=== PATIENT | female | born 1995 | race Two or more races ===

== ENCOUNTER 2021-03-30 12:05 | Emergency (ER) | payer MEDICAID, OTHER ==
[~2021-03-30] VITALS: Ht 154.9 cm; Wt 74.8 kg
[2021-03-30 14:22] LABS: Basophils # (auto) 0 10 ^3/uL (0-0.2); Basophils % (auto) 0.8 % (0.0-2.0); Eosinophils # (auto) 0.1 10 ^3/uL (0-0.8); Hematocrit 42.8 % (36.0-46.0); Hemoglobin 14.8 g/dL (12.2-16.2); Lymphocytes # (auto) 2.2 10 ^3/uL (0.4-5.4); Lymphocytes % (auto) 35.3 % (10.0-50.0); Mean Corpuscular Hemoglobin 31.3 pg (28.0-32.0); Mean Corpuscular Hgb Conc. 34.5 g/dL (32.0-36.0); Mean Corpuscular Volume 90.6 fL (80.0-100.0); Monocytes # (auto) 0.5 10 ^3/uL (0-1.3); Monocytes % (auto) 7.4 % (0.0-12.0); Neutrophils # (auto) 3.4 10 ^3/uL (1.6-8.6); Neutrophils % (auto) 54.5 % (37.0-80.0); Nucleated Red Blood Cells % 0.1 %; Platelet Count (auto) 169 10^3/uL (140-450); Red Blood Cells 4.72 10^6/uL (4.0-5.20); Red Cell Distribution Width 13.6 % (11.8-14.3); White Blood Cell 6.3 10^3/uL (4.4-10.8)
[2021-03-30 16:45] LABS: Urine Bacteria NONE SEEN /hpf (None Seen); Urine Blood 3+ /uL (Negative); Urine Specific Gravity 1.025 (1.001-1.035); Urine WBC 3 /hpf (0 - 5)
[2021-03-30 17:52] VITALS: BP 118/70
== END 2021-03-30 17:56 | disposition home or self-care (01) ==
LOC: ER 12:05 → EDBD 12:05 → ER 17:56
DX: N93.9 Abnormal uterine and vaginal bleeding, unspecified (principal)
CPT/HCPCS: 36415; 81001; 84702; 85025

== ENCOUNTER 2021-12-17 14:36 | Emergency (ER) | payer MEDICAID ==
[~2021-12-17] VITALS: Ht 157.5 cm; Wt 77.1 kg
[2021-12-17 14:37] VITALS: BP 120/74
== END 2021-12-17 19:56 | disposition home or self-care (01) ==
LOC: ER 14:36
DX: R07.89 Other chest pain (principal)
CPT/HCPCS: 71046; 93005

== ENCOUNTER 2023-08-03 18:15 | Inpatient (IN) | payer MEDICAID ==
[~2023-08-03] VITALS: Ht 154.9 cm; Wt 95.3 kg
[2023-08-03] MEDS ORDERED: LACTATED RINGER'S 1,000 ML IV SCH ×2 (18:30→21:15)
[2023-08-03] MEDS ORDERED: ceFAZolin 1GM/50ML 50 ML IV ONE (18:30)
[2023-08-03] MEDS ORDERED: LACTATED RINGER'S 1,000 ML IV ONE (18:30)
[2023-08-03] MEDS ORDERED: DexAMETHasone SOD PHOS 10MG/1ML VIAL INJ ONE (19:00)
[2023-08-03] MEDS ORDERED: oxyTOCIN 10 UNIT/ML 10ML VIAL ONE (19:00)
[2023-08-03] MEDS ORDERED: ONDANSETRON HCL 4 MG/2 ML VIAL ONE (19:00)
[2023-08-03] MEDS ORDERED: MORPHINE SULF PF 5 MG/10 ML VIAL ONE (19:02)
[2023-08-03] MEDS ORDERED: fentaNYL CITRATE 100 MCG/2 ML VL ONE (19:02)
[2023-08-03 19:11] LABS: Basophils # (auto) 0 10 ^3/uL (0-0.2); Basophils % (auto) 0.4 % (0.0-2.0); Eosinophils # (auto) 0.1 10 ^3/uL (0-0.8); Eosinophils % (auto) 0.8 % (0.0-7.0); Hematocrit 41.2 % (36.0-46.0); Hemoglobin 13.8 g/dL (12.2-16.2); Lymphocytes # (auto) 2.2 10 ^3/uL (0.4-5.4); Lymphocytes % (auto) 26.2 % (10.0-50.0); Mean Corpuscular Hemoglobin 32.5 pg (28.0-32.0); Mean Corpuscular Hgb Conc. 33.6 g/dL (32.0-36.0); Mean Corpuscular Volume 96.9 fL (80.0-100.0); Monocytes # (auto) 0.7 10 ^3/uL (0-1.3); Monocytes % (auto) 7.9 % (0.0-12.0); Neutrophils # (auto) 5.4 10 ^3/uL (1.6-8.6); Neutrophils % (auto) 64.7 % (37.0-80.0); Nucleated Red Blood Cells % 0.2 %; Red Blood Cells 4.25 10^6/uL (4.0-5.20); Red Cell Distribution Width 14.9 % (11.8-14.3); White Blood Cell 8.4 10^3/uL (4.4-10.8)
[2023-08-03 19:26] LABS: Alanine Aminotransferase 24 U/L (7-40); Albumin 3.6 g/dL (3.2-4.8); Alkaline Phosphatase 201 U/L (46-116); Anion Gap 7 (5-15); Aspartate Aminotransferase 23 U/L (13-40); Bilirubin, Total 0.5 mg/dL (0.2-1.0); Blood Urea Nitrogen 14 mg/dL (9-23); Calcium 9.1 mg/dL (8.5-10.1); Carbon Dioxide 22 mmol/L (20-30); Chloride 108 mmol/L (98-107); Glucose 76 mg/dL (74-106); Potassium 4.2 mmol/L (3.5-5.1); Sodium 137 mmol/L (136-145); Total Protein 5.9 g/dL (5.7-8.2)
[2023-08-03] MEDS ORDERED: CARBOPROST TROMETHAMINE 250 MCG/1ML VIAL IM PRN (19:30)
[2023-08-03] MEDS ORDERED: METHYLERGONOVINE MALEATE 0.2 MG/ML AMP IM PRN (19:30)
[2023-08-03] MEDS ORDERED: TRANEXAMIC ACID 1,000 MG in SODIUM CHL 0.9% 100 ML IV PRN (19:30)
[2023-08-03] MEDS ORDERED: DOCU-94 PO (19:32)
[2023-08-03] MEDS ORDERED: HYDR-4902 PO (19:32)
[2023-08-03] MEDS ORDERED: CEPH500T PO (19:32)
[2023-08-03 19:36] LABS: Urine Bacteria NONE SEEN /hpf (None Seen); Urine Blood Negative /uL (Negative); Urine Clarity Clear (Clear); Urine Color Colorless (Yellow); Urine Protein, UAD Negative (Negative); Urine Specific Gravity 1.012 (1.001-1.035); Urine Urobilinogen Normal (Negative); Urine WBC 1 /hpf (0 - 5)
[2023-08-03 19:43] LABS: Amphetamine Screen, Urine Neg (NEGATIVE); Barbiturate Scree,Urine Neg (NEGATIVE)
[2023-08-03 19:44] LABS: Benzodiazephine Screen, Urine Neg (NEGATIVE); Cocaine Screen, Urine Neg (NEGATIVE); Opiate Scree,Urine Neg (NEGATIVE); Phencyclidine Screen, Urine Neg (NEGATIVE)
[2023-08-03 19:45] LABS: Cannabinoid Screen, Urine Neg (NEGATIVE)
[2023-08-03] MEDS ORDERED: GUM (CHEWING) 1 GUM CHEW CHEW ONE (19:45)
[2023-08-03] MEDS ORDERED: ceFAZolin 1GM VL ONE (19:45)
[2023-08-03] MEDS ORDERED: LACT. RINGERS/OXYTOCIN 20UNITS 1,000 ML IV ONE (19:45)
[2023-08-03] MEDS ORDERED: ONDANSETRON HCL 4 MG/2 ML VIAL IV PRN ×2 (19:45→21:00)
[2023-08-03 19:53] LABS: Giant Platelets Moderate; Platelet Estimate Decreased
[2023-08-03] MEDS ORDERED: CARBOPROST TROMETHAMINE 250 MCG/1ML VIAL IM ONE (20:03)
[2023-08-03] MEDS ORDERED: diphenhdrAMINE HCL 50 MG/1 ML VL ONE (20:11)
[2023-08-03 20:40] VITALS: O2SAT 98
[2023-08-03] MEDS ORDERED: NALOXONE HCL 0.4 MG/ML VIAL IV PRN (21:00)
[2023-08-03] MEDS ORDERED: diphenhdrAMINE HCL 50 MG/1 ML VL IV PRN (21:00)
[2023-08-03] MEDS ORDERED: HYDROmorphone HCL 2 MG/ML VL/or syr IV PRN (21:00)
[2023-08-03] MEDS ORDERED: NALBUPHINE HCL 10 MG/1ml INJECTION IV ONE (21:00)
[2023-08-03 21:10] VITALS: BP 117/72; PULSE 75; O2SAT 96
[2023-08-03 21:20] VITALS: BP 105/60; PULSE 90; O2SAT 94
[2023-08-03] MEDS ORDERED: ceFAZolin 1GM/50ML 50 ML IV SCH (22:00)
[2023-08-03 22:25] VITALS: BP 108/63; PULSE 77; O2SAT 96
[2023-08-03 23:12] VITALS: RESP 16; TEMP 97.7
[2023-08-03 23:25] VITALS: BP 115/67; PULSE 77; O2SAT 96
[2023-08-04] VITALS (26 sets, daily range): BP systolic 92–129; BP diastolic 49–89; PULSE 60–98; RESP 15–18; TEMP 97.7–98.9; O2SAT 73–100
[2023-08-04] MEDS ORDERED: PROMETHAZINE HCL 25 MG/ML 1ML IM ONE (01:30)
[2023-08-04] MEDS: ceFAZolin 1GM/50ML 50 ML IV SCH ×3 (03:07→19:10)
[2023-08-04] MEDS: ACETAMINOPHEN IV 1000 MG/100ML (10MG/ML) IV PRN ×2 (07:07→14:53)
[2023-08-04 07:24] LABS: Basophils # (auto) 0 10 ^3/uL (0-0.2); Basophils % (auto) 0.1 % (0.0-2.0); Eosinophils # (auto) 0 10 ^3/uL (0-0.8); Hematocrit 39.5 % (36.0-46.0); Hemoglobin 13.1 g/dL (12.2-16.2); Lymphocytes # (auto) 1.3 10 ^3/uL (0.4-5.4); Lymphocytes % (auto) 8.1 % (10.0-50.0); Mean Corpuscular Hemoglobin 32.2 pg (28.0-32.0); Mean Corpuscular Hgb Conc. 33.2 g/dL (32.0-36.0); Monocytes # (auto) 0.6 10 ^3/uL (0-1.3); Monocytes % (auto) 3.5 % (0.0-12.0); Neutrophils # (auto) 14.6 10 ^3/uL (1.6-8.6); Neutrophils % (auto) 88.3 % (37.0-80.0); Nucleated Red Blood Cells % 0.1 %; Red Blood Cells 4.07 10^6/uL (4.0-5.20); Red Cell Distribution Width 14.9 % (11.8-14.3); White Blood Cell 16.6 10^3/uL (4.4-10.8)
[2023-08-04 07:38] LABS: INR 0.95 (0.9-1.15); Partial Thromboplastin Time 26.9 SEC (24.5-34.5)
[2023-08-04] MEDS ORDERED: BISACODYL 10 MG RECT SUPP PR PRN (18:15)
[2023-08-04] MEDS: IBUPROFEN 800 MG TAB PO PRN (19:18)
[2023-08-04] MEDS: SIMETHICONE 80 MG CHEWABLE TABLET PO SCH (22:32)
[2023-08-04] MEDS: DOCUSATE SOD 100 MG CAP PO SCH (22:32)
[2023-08-05 03:00] VITALS: BP 104/56; PULSE 72; RESP 16; TEMP 98.2; O2SAT 95
[2023-08-05] MEDS: ceFAZolin 1GM/50ML 50 ML IV SCH ×2 (03:29→11:23)
[2023-08-05] MEDS: HYDROcodone-ACET 5/325MG TAB PO PRN ×5 (03:37→19:45)
[2023-08-05] MEDS: SIMETHICONE 80 MG CHEWABLE TABLET PO SCH ×4 (07:01→22:34)
[2023-08-05 07:02] VITALS: BP 116/58; PULSE 109; RESP 18; TEMP 98.5; O2SAT 97
[2023-08-05 07:06] LABS: RPR Non Reactive (Non Reactive)
[2023-08-05] MEDS: DOCUSATE SOD 100 MG CAP PO SCH ×2 (09:40→22:34)
[2023-08-05] MEDS ORDERED: DOCUSATE CALCIUM 240 MG CAP PO SCH (10:00)
[2023-08-05 11:21] VITALS: BP 117/70; PULSE 99; RESP 18; TEMP 98.3; O2SAT 97
[2023-08-05] MEDS: IBUPROFEN 800 MG TAB PO PRN ×2 (14:29→22:34)
[2023-08-05 14:43] VITALS: BP 125/73; PULSE 94; RESP 18; TEMP 98.3; O2SAT 97
[2023-08-05 19:00] VITALS: BP 106/60; PULSE 87; RESP 16; TEMP 98; O2SAT 97
[2023-08-05] MEDS ORDERED: PREN-96 PO (21:59)
[2023-08-05 23:00] VITALS: BP 97/70; PULSE 74; RESP 16; TEMP 97.6; O2SAT 98
[2023-08-06] MEDS ORDERED: IBUP-1455 PO (01:56)
[2023-08-06 02:40] VITALS: BP 109/59; PULSE 72; RESP 16; TEMP 97.8; O2SAT 98
[2023-08-06] MEDS: HYDROcodone-ACET 5/325MG TAB PO PRN (02:47)
[2023-08-06] MEDS: SIMETHICONE 80 MG CHEWABLE TABLET PO SCH (05:28)
[2023-08-06 07:30] VITALS: BP 97/58; PULSE 87; RESP 16; RESP 18; TEMP 99; O2SAT 97
[2023-08-06] MEDS: IBUPROFEN 800 MG TAB PO PRN (07:50)
[2023-08-06 10:28] VITALS: BP 123/87; PULSE 89; RESP 18; TEMP 98.9; O2SAT 97
[2023-08-07 19:06] LABS: Treponema pallidum Ab (FTA-Ab) Non Reactive (Non Reactive)
== END 2023-08-06 10:28 | disposition home or self-care (01) | DRG 540 ==
LOC: LDRP 18:15
PROVIDERS: ADMIT Obstetrics & Gynecology; ATTEND Obstetrics & Gynecology
PROC: 10D00Z1 Extraction of Products of Conception, Low, Open Approach (ICD-10-PCS; principal; 2023-08-03 19:33)
DX: O41.03X0 Oligohydramnios, third trimester, not applicable or unspecified (principal); O99.214 Obesity complicating childbirth; E66.01 Morbid (severe) obesity due to excess calories; O32.1XX0 Maternal care for breech presentation, not applicable or unspecified; Z3A.38 38 weeks gestation of pregnancy; Z37.0 Single live birth
CPT/HCPCS: 36415; 59025; 80053; 80307; 81001; 81002; 85025; 85610; 85730; 86592; 86850; 86900; 86901; 94760; 94762; 96360; 96361; 96372; 96374; G0378; J0131; J0690; J1100; J2405; J2590

== ENCOUNTER 2025-05-14 09:38 | Outpatient (CLI) | payer MEDICAID ==
[~2025-05-14 09:38] MED LIST: CEPH500T PO; DOCU-94 PO; HYDR-4902 PO; IBUP-1455 PO; PREN-96 PO
== END 2025-05-14 17:00 | disposition home or self-care (01) ==
LOC: LAB 09:38
PROVIDERS: ATTEND Obstetrics & Gynecology
DX: Z34.80 Encounter for supervision of other normal pregnancy, unspecified trimester (principal); Z3A.00 Weeks of gestation of pregnancy not specified
CPT/HCPCS: 86850; 86900; 86901

== ENCOUNTER 2025-06-04 09:00 | Observation (INO) | payer MEDICAID ==
[~2025-06-04] VITALS: Ht 154.9 cm; Wt 94.3 kg
[2025-06-04 09:45] LABS: Hematocrit 37.8 % (36.0-46.0); Hemoglobin 13.0 g/dL (12.2-16.2); Mean Corpuscular Hemoglobin 31.8 pg (28.0-32.0); Mean Corpuscular Volume 92.2 fL (80.0-100.0); Nucleated Red Blood Cells % 0.1 %
[2025-06-04 09:55] LABS: Alanine Aminotransferase 14 U/L (7-40); Albumin 3.7 g/dL (3.2-4.8); Alkaline Phosphatase 73 U/L (46-116); Anion Gap 8 (5-15); BUN/Creatinine Ratio 17.3 (10.0-20.0); Blood Urea Nitrogen 9 mg/dL (9-23); Calcium 8.9 mg/dL (8.7-10.4); Carbon Dioxide 22 mmol/L (20-31); Glucose 95 mg/dL (74-106); Potassium 3.8 mmol/L (3.5-5.1); Sodium 138 mmol/L (136-145); Total Protein 6.1 g/dL (5.7-8.2); Uric Acid 3.7 mg/dL (3.1-7.8)
[2025-06-04 09:56] LABS: Bilirubin, Total 0.5 mg/dL (0.2-1.0)
[2025-06-04 09:58] LABS: Chloride 108 mmol/L (98-107)
[2025-06-04 10:02] LABS: INR 0.96 (0.9-1.15); Partial Thromboplastin Time 25.7 SEC (24.5-34.5); Prothrombin Time 10.2 sec (9.3-11.8)
[2025-06-04 10:09] LABS: Protein, Urine < 6.0 mg/dL (1-14)
[2025-06-04 10:16] LABS: Urine Protein, UAD Negative (Negative)
--- NOTE | 2025-06-04 13:53 | DVHDS2 ---
Physician Discharge Progress N Final Diagnosis: [facility] 24wks Operations or Procedures: Operations or Procedures nst,labs Condition on Discharge: Good Disposition: Home Discharge Instructions: Diet: Regular Activity: Light activity Medications: na Follow Up Care: Specialist: 3d Discharge Statement: "Patient was advised to return to the ER or call 911 if any headaches, dizziness , shortness of breath, chest pain, abdominal pain, bleeding, fevers, or worsening of medical condition. Patient was counseled about treatment plan, medications, possible side effects, patientverbalized understanding. All questions were answered to the best of my ability. This discharge took greater then 30 minutes in planning, reviewing documentation, counseling the patient, and discussing with other team members." Visit Coding OBGYN Date of Service: Jun 04, 2025 Billing Provider: MIKAELA KING DO MACHINE PLASTER MIXER Common Visit Codes: 47233-DRJLAOR OBS CARE (HIGH) MACHINE PLASTER MIXER Procedure Codes: 24899-26- NON-STRESS TEST MIKAELA KING DO Jun 04, 2025 13:53
== END 2025-06-04 10:55 | disposition home or self-care (01) ==
LOC: LDRP 09:00 → UNDOADMOB 09:00 → LDRP 09:11 → UNDODISOB 10:55
PROVIDERS: ADMIT Obstetrics & Gynecology; ATTEND Obstetrics & Gynecology
DX: O13.3 Gestational [pregnancy-induced] hypertension without significant proteinuria, third trimester (principal); Z3A.24 24 weeks gestation of pregnancy; Z98.890 Other specified postprocedural states
CPT/HCPCS: 36415; 80053; 81001; 81002; 82570; 84156; 84550; 85025; 85610; 85730; 94760; G0378; 59025

== ENCOUNTER 2025-06-09 12:20 | Observation (INO) | payer MEDICAID ==
[2025-06-09 13:53] LABS: Urine Protein, UAD TRACE (Negative)
[2025-06-09 14:03] LABS: Protein, Urine 7.0 mg/dL (1-14)
[2025-06-09 14:34] LABS: 24 Hr. Total Protein, Urine 129.5 mg/24 Hr (<149.1); Urine Total Volume, 24 Hours 1850.0 mL
--- NOTE | 2025-06-11 09:57 | DVHDS2 ---
Physician Discharge Progress N Final Diagnosis: [facility] RULED OUT 24WKS Operations or Procedures: Operations or Procedures NST,SONO,LABS Condition on Discharge: Good Disposition: Home Discharge Instructions: Diet: Cardiac 2g Na,low cholest Activity: No Restrictions, As Tolerated Medications: NA Follow Up Care: Specialist: 1W Discharge Statement: "Patient was advised to return to the ER or call 911 if any headaches, dizziness, shortness of breath, chest pain, abdominal pain, bleeding, fevers, or worsening of medical condition. Patient was counseled about treatment plan, medications, possible side effects, patientverbalized understanding. All questions were answered to the best of my ability. This discharge took greater then 30 minutes in planning, reviewing documentation, counseling the patient, and discussing with other team members." Visit Coding OBGYN Date of Service: Jun 09, 2025 Billing Provider: MIKAELA KING DO EXTRACORPOREAL CIRCULATION SPECIALIST Common Visit Codes: 27713-DGNQBLW OBS CARE (HIGH) EXTRACORPOREAL CIRCULATION SPECIALIST Procedure Codes: 44337-23- NON-STRESS TEST MIKAELA KING DO Jun 11, 2025 09:57
== END 2025-06-09 13:40 | disposition home or self-care (01) ==
LOC: LDRP 12:20
PROVIDERS: ADMIT Obstetrics & Gynecology; ATTEND Obstetrics & Gynecology
DX: O13.2 Gestational [pregnancy-induced] hypertension without significant proteinuria, second trimester (principal); Z3A.25 25 weeks gestation of pregnancy; Z98.890 Other specified postprocedural states
CPT/HCPCS: 81001; 81002; 82570; 84156; 94760; G0378

== ENCOUNTER 2025-06-16 06:26 | Observation (INO) | payer MEDICAID ==
--- NOTE | 2025-06-16 14:42 | DVHDS2 ---
Discharge Summary Date of Admission Jun 16, 2025 at 12:02 Date of Discharge: Jun 16, 2025 Admitting Diagnosis Twenty-six week intrauterine history of PH here for evaluation Wounds: None Labs/Diagnostic Data: Reassuring Brief Hx & Hospital Course: Patient's history of PH but no signs or symptoms today NST reassuring blood pressures reassuring no right upper quadrant pain Consults/Reason for consult None Operations or Procedures None NST performed reassuring Condition at Discharge: Good Final Diagnosis/Problems List PIH Discharge Disposition: Home Discharge Instruct/Medications Diet: Regular Activity: No Restrictions, As Tolerated Follow Up/Referral: As scheduled kick counts labor precautions PIH precautions Scheduled Cephalexin Monohydrate (Cephalexin), 500 MG PO QID Docusate Sodium (Colace), 1 CAP PO BID Vit W/ Ferrous Fumara ( One Daily), 1 TAB PO DAILY Scheduled PRN Hydrocodone-Acetaminophen (Hydrocodone Bitartrate/AC 5-325 mg), 1 TAB PO Q6HPRN PRN Ibuprofen Micronized (Ibuprofen), 800 MG PO Q8HP PRN Discharge Statement: "Patient was advised to return to the ER or call 911 if any headaches, dizziness, shortness of breath, chest pain, abdominal pain, bleeding, fevers, or worsening of medical condition. Patient was counseled about treatment plan, medications, possible side effects, patientverbalized understanding. All questions were answered to the best of my ability. This discharge took greater then 30 minutes in planning, reviewing documentation, counseling the patient, and discussing with other team members." ASSESSMENT ASSESSMENT Assessment Visit Coding OBGYN Date of Service: Jun 16, 2025 Billing Provider: ERICA MEYERS DO BEHAVIORAL HEALTH CONSULTANT Common Visit Codes: 60592-ZHP/OBS SAME DATE (LOW), 40467-VWT/OBS SAME DATE (MOD), 29981-LTK/OBS SAME DATE (HIGH) BEHAVIORAL HEALTH CONSULTANT Procedure Codes: 43135-78- NON-STRESS TEST ERICA MEYERS DO Jun 16, 2025 14:42
== END 2025-06-16 13:48 | disposition home or self-care (01) ==
LOC: LDRP 12:02
PROVIDERS: ADMIT Obstetrics & Gynecology; ATTEND Obstetrics & Gynecology
DX: O13.3 Gestational [pregnancy-induced] hypertension without significant proteinuria, third trimester (principal); Z3A.36 36 weeks gestation of pregnancy; Z98.890 Other specified postprocedural states
CPT/HCPCS: 81002; G0378

== ENCOUNTER 2025-06-26 06:31 | Observation (INO) | payer MEDICAID ==
[~2025-06-26] VITALS: Ht 154.9 cm; Wt 97.5 kg
--- NOTE | 2025-06-26 20:33 | DVHDS2 ---
Physician Discharge Progress N Final Diagnosis: testing and BP monitor for hx of pre-e Operations or Procedures: Operations or Procedures SUBJECTIVE Chikis Rod is a 29 yo with IUP at 27w5d presenting for scheduled NST and BP monitoring x 1 hour for hx pre-e with magnesium Denies feeling UCs, vaginal bleeding, or leaking fluid. Endorses positive movement. Is undecided whether she wants to TOLAC or do a r c/s EDC: 09/20/2025 Ob Hx: x1 in 2019 (pre-e and on magnesium) c/s x 1 in 2022 for breech presentation Med Hx: denies Surg Hx: denies Review of Systems: Neuro: No complaints Heart: No complaints Lungs: No complaints GI: No complaints : No complaints Skin: No complaints Extremities: No complaints OBJECTIVE VSS FHR: Baseline: 150 Variability: Moderate Accelerations: Present Decelerations: Absent Category: 1 UCs: none noted Neuro: A&O x4. No apparent distress. Affect appropriate Heart: Regular rate and rhythm Lungs: Clear bilaterally GI: Gravid. No tenderness Skin: Dry and intact. No rashes or lesions ASSESSMENT 29 yo at 27w5d Category 1 Tracing Prev c/s Hx. Pre-e on magnesium PLAN -Discussed risks/benefits of TOLAC vs scheduled repeat c/s. Encouraged patient to do research and ask questions to decide what she wants to do -Discussed labor precautions and kick counts. Answered all patient questions and concerns. Patient verbalizes understanding. Condition on Discharge: Good Disposition: Home Discharge Instructions: Diet: Regular Activity: No Restrictions, As Tolerated Medications: No change. See med list Follow Up Care: Specialist: follow-up weekly as previously scheduled Discharge Statement: "Patient was advised to return to the ER or call 911 if any headaches, dizziness, shortness of breath, chest pain, abdominal pain, bleeding, fevers, or worsening of medical condition. Patient was counseled about treatment plan, medications, possible side effects, patientverbalized understanding. All questions were answered to the best of my ability. This discharge took greater then 30 minutes in planning, reviewing documentation, counseling the patient, and discussing with other team members." Visit Coding OBGYN Date of Service: Jun 26, 2025 Billing Provider: SALOMÓN MIKE CNM POULTRY CLEANER Common Visit Codes: 51444-AUKPKDY OBS CARE (HIGH) POULTRY CLEANER Procedure Codes: 11034-85- NON-STRESS TEST SALOMÓN MIKE CNM Jun 26, 2025 20:33
== END 2025-06-26 21:03 | disposition home or self-care (01) ==
LOC: LDRP 19:33
PROVIDERS: ADMIT Obstetrics & Gynecology; ATTEND Obstetrics & Gynecology
DX: O13.2 Gestational [pregnancy-induced] hypertension without significant proteinuria, second trimester (principal); O34.219 Maternal care for unspecified type scar from previous cesarean delivery; Z3A.27 27 weeks gestation of pregnancy; Z98.890 Other specified postprocedural states
CPT/HCPCS: 81002; 94760; G0378; 59025

== ENCOUNTER 2025-07-02 08:56 | Observation (INO) | payer MEDICAID ==
--- NOTE | 2025-07-03 22:08 | DVHDS2 ---
Physician Discharge Progress N Final Diagnosis: testing for hx pre-e on magnesium Secondary Diagnosis: prev c/s Operations or Procedures: Operations or Procedures Chikis Rod is a 29 yo with IUP at 28w5d presenting for scheduled NST and BP monitoring x 1 hour for hx pre-e with magnesium Denies feeling UCs, vaginal bleeding, or leaking fluid. Patient is wondering if she needs to continue coming in weekly for BP checks, as all her BPs have been WNL EDC: 09/20/2025 Ob Hx: x1 in 2019 (pre-e and on magnesium) c/s x 1 in 2022 for breech presentation Med Hx: denies Surg Hx: denies Review of Systems: Neuro: No complaints Heart: No complaints Lungs: No complaints GI: No complaints : No complaints Skin: No complaints Extremities: No complaints OBJECTIVE VSS. All BP WNL FHR: Baseline: 135 Variability: Moderate Accelerations: Present Decelerations: One variable decel noted Reactive NST UCs: none noted Neuro: A&O x4. No apparent distress. Affect appropriate Heart: Regular rate and rhythm Lungs: Clear bilaterally GI: Gravid. No tenderness Skin: Dry and intact. No rashes or lesions ASSESSMENT 29 yo at 28w5d Category 1 Tracing Prev c/s Hx. Pre-e on magnesium PLAN -Encouraged patient to discuss POC with Dr Bazan at her appointment tomorrow 07/04. Educated patient on pre-e warning signs to watch for and BP monitoring regimen at home, if MD states it is OK to do so -Discussed labor precautions and kick counts. Answered all patient questions and concerns. Patient verbalizes understanding. Condition on Discharge: Good Disposition: Home Discharge Instructions: Diet: Regular Activity: No Restrictions, As Tolerated Medications: No change Follow Up Care: Specialist: Appt with Dr Bazan tomorrow 07/04 Discharge Statement: "Patient was advised to return to the ER or call 911 if any headaches, dizziness, shortness of breath, chest pain, abdominal pain, bleeding, fevers, or worsening of medical condition. Patient was counseled about treatment plan, medications, possible side effects, patientverbalized understanding. All questions were answered to the best of my ability. This discharge took greater then 30 minutes in planning, reviewing documentation, counseling the patient, and discussing with other team members." Visit Coding OBGYN Date of Service: Jul 03, 2025 Billing Provider: SALOMÓN MIKE CNM FIELD ASSESSOR Common Visit Codes: 35391-IPQNOLM INP/OBS CARE (HIGH) FIELD ASSESSOR Procedure Codes: 27017-97- NON-STRESS TEST SALOMÓN MIKE CNM Jul 03, 2025 22:08
== END 2025-07-03 20:51 | disposition home or self-care (01) ==
LOC: LDRP 07-03 18:41
PROVIDERS: ADMIT Obstetrics & Gynecology; ATTEND Obstetrics & Gynecology
DX: Z36.89 Encounter for other specified antenatal screening (principal); Z3A.28 28 weeks gestation of pregnancy; Z98.890 Other specified postprocedural states
CPT/HCPCS: 59025; 81002; 94760; G0378

== ENCOUNTER 2025-07-30 21:47 | Observation (INO) | payer MEDICAID ==
--- NOTE | 2025-07-30 22:41 | DVH ---
BIOPHYSICAL PROFILE HISTORY: PIH TECHNIQUE: Multiple transabdominal real-time grayscale sonographic images through the gravid uterus of the fetus with duplex Doppler color flow and M-mode spectral analysis FINDINGS: BIOPHYSICAL PROFILE: breathing score: 2 movement score: 2 tone score: 2 Quantitative SOHAIL score: 2 (SOHAIL: 10.1 Cm, MVP: 5.1 cm.) Total score: 8/8 The cervix obscured by head Single live fetus in cephalic presentation. heart rate 146 beats per minute. Fundal Grade 1 placenta without previa or abruption Single live fetus at 32 weeks 4 days Biophysical profile score 8/8 corresponding to an NILAY of 09/20/2025 IMPRESSION: 1. Biophysical profile score: 8/8 2. Nuchal cord
[2025-07-30 23:02] LABS: Hematocrit 37.3 % (36.0-46.0); Hemoglobin 12.6 g/dL (12.2-16.2); Mean Corpuscular Hemoglobin 31.3 pg (28.0-32.0); Mean Corpuscular Volume 92.4 fL (80.0-100.0); Nucleated Red Blood Cells % 0.2 %
[2025-07-30 23:13] LABS: Protein, Urine 6.8 mg/dL (1-14); Urine Protein, UAD Negative (Negative)
[2025-07-30 23:18] LABS: Alanine Aminotransferase 15 U/L (7-40); Albumin 3.5 g/dL (3.2-4.8); Alkaline Phosphatase 104 U/L (46-116); Anion Gap 9 (5-15); BUN/Creatinine Ratio 18.9 (10.0-20.0); Blood Urea Nitrogen 10 mg/dL (9-23); Calcium 9.0 mg/dL (8.7-10.4); Carbon Dioxide 24 mmol/L (20-31); Chloride 106 mmol/L (98-107); Glucose 97 mg/dL (74-106); Potassium 3.6 mmol/L (3.5-5.1); Sodium 139 mmol/L (136-145); Total Protein 5.9 g/dL (5.7-8.2); Uric Acid 3.4 mg/dL (3.1-7.8)
[2025-07-30 23:19] LABS: Bilirubin, Total 0.3 mg/dL (0.2-1.0)
[2025-07-30 23:26] LABS: INR 0.94 (0.9-1.15); Partial Thromboplastin Time 26.2 SEC (24.5-34.5); Prothrombin Time 10.0 sec (9.3-11.8)
--- NOTE | 2025-07-30 23:47 | DVHDS2 ---
Physician Discharge Progress N Final Diagnosis: ruled out preeclampsia Operations or Procedures: Operations or Procedures 29yo IUP@32.4wks was sent down from Dr. Bazan's office for rule out PreE/NST/BPP. Denies UCs/LOF/VB/WINTER/vision changes/RUQ pain. Endorses +FM. VSS, see CPN NST reactive BPP 05/16 [facility]KC/PTL/preE precautions reviewed Dr. Bazan consulted, agrees with POC. Laboratory Tests Test 07/30/25 22:20 07/30/25 22:38 Range/Units Urine Color Light-yellow Yellow Urine Clarity Clear Clear Urine pH 6.5 5.0-9.0 Urine Specific Dawson 1.017 1.001-1.035 Urine Protein Negative Negative Urine Ketones Negative Negative Urine Blood Negative Negative /uL Urine Nitrite Negative Negative Urine Bilirubin Negative Negative Urine Urobilinogen Normal Negative mg/dL Urine Leukocyte Esterase Negative Negative /uL Urine RBC None seen 0 - 4 /hpf Urine Microscopic WBC 1 0-5 /HPF Urine Squamous Epithelial Cells Few <5 /hpf Urine Bacteria None seen None Seen /hpf Urine Creatinine 76.66 30.0-125.0 mg/dL Urine Protein/Creatinine Ratio 0.09 Urine Glucose Normal Normal mg/dL Urine Total Protein 6.8 1-14 mg/dL White Blood Count 10.0 4.4-10.8 10^3/uL Red Blood Count 4.04 4.0-5.20 10^6/uL Hemoglobin 12.6 12.2-16.2 g/dL Hematocrit 37.3 36.0-46.0 % Mean Corpuscular Volume 92.4 80.0-100.0 fL Mean Corpuscular Hemoglobin 31.3 28.0-32.0 pg Mean Corpuscular Hemoglobin Concent 33.9 32.0-36.0 g/dL Red Cell Distribution Width 14.3 11.8-14.3 % Platelet Count 157 140-450 10^3/uL Mean Platelet Volume 11.3 H 6.9-10.8 fL Neutrophils (%) (Auto) 63.8 37.0-80.0 % Lymphocytes (%) (Auto) 25.6 10.0-50.0 % Monocytes (%) (Auto) 8.9 0.0-12.0 % Eosinophils (%) (Auto) 1.4 0.0-7.0 % Basophils (%) (Auto) 0.3 0.0-2.0 % Neutrophils # (Auto) 6.4 1.6-8.6 10 ^3/uL Lymphocytes # (Auto) 2.6 0.4-5.4 10 ^3/uL Monocytes # (Auto) 0.9 0-1.3 10 ^3/uL Eosinophils # (Auto) 0.1 0-0.8 10 ^3/uL Basophils # (Auto) 0 0-0.2 10 ^3/uL Nucleated Red Blood Cells 0.2 % Prothrombin Time 10.0 9.3-11.8 sec Prothrombin Time INR 0.94 0.9-1.15 Activated Partial Thromboplast Time 26.2 24.5-34.5 SEC Sodium Level 139 136-145 mmol/L Potassium Level 3.6 3.5-5.1 mmol/L Chloride Level 106 98-107 mmol/L Carbon Dioxide Level 24 20-31 mmol/L Anion Gap 9 5-15 Blood Urea Nitrogen 10 9-23 mg/dL Creatinine 0.53 L 0.550-1.02 mg/dL Glomerular Filtration Rate Calc 129 >90 mL/min BUN/Creatinine Ratio 18.9 10.0-20.0 Serum Glucose 97 74-106 mg/dL Uric Acid 3.4 3.1-7.8 mg/dL Calcium Level 9.0 8.7-10.4 mg/dL Total Bilirubin 0.3 0.2-1.0 mg/dL Aspartate Amino Transferase (AST) 16 13-40 U/L Alanine Aminotransferase (ALT) 15 7-40 U/L Alkaline Phosphatase 104 46-116 U/L Total Protein 5.9 5.7-8.2 g/dL Albumin 3.5 3.2-4.8 g/dL Other Interventions Other Interventions [facility] [id number] [place] [id number] Ph: [phone] DIAGNOSTIC IMAGING Diagnostic Imaging Report : [id number] Signed PATIENT: SKY CURIEL ACCT: [id number] UNIT: [id number] : 1995 LOC: [facility] ROOM / BED: TRIAGE1 / A AGE / SEX: 29 / F ADM STATUS: ADM IN SERVICE 577 ORDERING PHYSICIAN: AMIE SIMEON CNM PROCEDURE(s): BPP - BIOPHYSICAL PROFILE REASON: PIH ORDER NUMBER(s): [id number], ACCESSION NUMBER(s): [id number] BIOPHYSICAL PROFILE HISTORY: PIH TECHNIQUE: Multiple transabdominal real-time grayscale sonographic images through the gravid uterus of the fetus with duplex Doppler color flow and M-mode spectral analysis FINDINGS: BIOPHYSICAL PROFILE: breathing score: 2 movement score: 2 tone score: 2 Quantitative SOHAIL score: 2 (SOHAIL: 10.1 Cm, MVP: 5.1 cm.) Total score: 8/8 The cervix obscured by head Single live fetus in cephalic presentation. heart rate 146 beats per minute. Fundal Grade 1 placenta without previa or abruption Single live fetus at 32 weeks 4 days Biophysical profile score 8/8 corresponding to an NILAY of 09/20/2025 IMPRESSION: 1. Biophysical profile score: 8/8 2. Nuchal cord ATED BY: ODALYS KAPLAN Jr., DO DICTATED DATE/TIME: 07/30/252238 SIGNED BY: ODALYS KAPLAN Jr., SIGNED DATE/TIME: 07/30/252238 CC: Condition on Discharge: Stable Disposition: Home Discharge Instructions: Diet: Regular Activity: No Restrictions, As Tolerated Follow Up/Referral: KEEP CURRENT APPOINTMENT WITH DR BAZAN. Medications: see med list Follow Up Care: Specialist: f/u with Dr. Bazan in office as scheduled Discharge Statement: "Patient was advised to return to the ER or call 911 if any headaches, dizziness, shortness of breath, chest pain, abdominal pain, bleeding, fevers, or worsening of medical condition. Patient was counseled about treatment plan, medications, possible side effects, patientverbalized understanding. All questions were answered to the best of my ability. This discharge took greater then 30 minutes in planning, reviewing document ation, counseling the patient, and discussing with other team members." Visit Coding OBGYN Date of Service: Jul 30, 2025 Billing Provider: AMIE SIMEON CNM BOOM OPERATOR Common Visit Codes: 62027-DICTRJG OBS CARE (HIGH) BOOM OPERATOR Procedure Codes: 08240-64- NON-STRESS TEST AMIE SIMEON [facility] Jul 30, 2025 23:47
== END 2025-07-30 23:47 | disposition home or self-care (01) ==
LOC: LDRP 21:47
PROVIDERS: ADMIT Obstetrics & Gynecology; ATTEND Obstetrics & Gynecology
DX: O13.3 Gestational [pregnancy-induced] hypertension without significant proteinuria, third trimester (principal); Z3A.32 32 weeks gestation of pregnancy; Z98.890 Other specified postprocedural states
CPT/HCPCS: 36415; 59025; 76819; 80053; 81001; 81002; 82570; 84156; 84550; 85025; 85610; 85730; 94760; G0378

== ENCOUNTER 2025-09-08 11:16 | Observation (INO) | payer MEDICAID ==
[~2025-09-08] VITALS: Ht 154.9 cm; Wt 110.2 kg
--- NOTE | 2025-09-08 12:33 | DVH ---
BIOPHYSICAL PROFILE HISTORY: Postive anti-C TECHNIQUE: Multiple transabdominal real-time grayscale sonographic images through the gravid uterus of the fetus with duplex Doppler color flow and M-mode spectral analysis FINDINGS: BIOPHYSICAL PROFILE: breathing score: 2 movement score: 2 tone score: 2 Quantitative SOHAIL score: 2 (SOHAIL: 11.4 Cm.) Total score: 8 The cervix not well visualized Single live fetus in cephalic presentation. heart rate 152 beats per minute. Grade 3 fundal placenta without previa or abruption IMPRESSION: Biophysical profile score: 8
[2025-09-08] MEDS ORDERED: NIFE10CA52 PO (12:44)
[2025-09-08] MEDS: TERBUTALINE SULFATE 1 MG/ML 1ML VIAL SC SCH (13:17)
--- NOTE | 2025-09-08 23:09 | DVHDS2 ---
Discharge Summary Date of Admission Sep 08, 2025 at 11:21 Date of Discharge: Sep 08, 2025 Admitting Diagnosis 38 wks Positive anti C NST BPP Wounds: none Brief Hx & Hospital Course: NST BPP reassuring Operations or Procedures NST BPP Condition at Discharge: Good Final Diagnosis/Problems List 38 + weeks Antibody C Discharge Disposition: Home Discharge Instruct/Medications Diet: Regular Activity: No Restrictions, As Tolerated Activity comment: kick counts labor precautions Follow Up/Referral: as scheduled Scheduled Cephalexin Monohydrate (Cephalexin), 500 MG PO QID Docusate Sodium (Colace), 1 CAP PO BID Nifedipine (Procardia Capsule), 10 MG PO Q4HR, (Reported) Vit W/ Ferrous Fumara ( One Daily), 1 TAB PO DAILY Scheduled PRN Hydrocodone-Acetaminophen (Hydrocodone Bitartrate/AC 5-325 mg), 1 TAB PO Q6HPRN PRN Ibuprofen Micronized (Ibuprofen), 800 MG PO Q8HP PRN Discharge Statement: "Patient was advised to return to the ER or call 911 if any headaches, dizziness, shortness of breath, chest pain, abdominal pain, bleeding, fevers, or worsening of medical condition. Patient was counseled about treatment plan, medications, possible side effects, patientverbalized understanding. All questions were answered to the best of my ability. This discharge took greater then 30 minutes in planning, reviewing documentation, counseling the patient, and discussing with other team members." ASSESSMENT ASSESSMENT Assessment Visit Coding OBGYN Date of Service: Sep 08, 2025 Billing Provider: ERICA MEYERS DO SAMPLE PREPARATION SUPERVISOR Common Visit Codes: 39828-NHNMAXL INP/OBS CARE (HIGH), 50132-OFH/OBS SAME DATE (LOW), 74947-NYX/OBS SAME DATE (MOD) SAMPLE PREPARATION SUPERVISOR Procedure Codes: 36118-94- NON-STRESS TEST ERICA MEYERS DO Sep 08, 2025 23:09
== END 2025-09-08 14:05 | disposition home or self-care (01) ==
LOC: UNDOADMOB 11:16 → LDRP 11:16
PROVIDERS: ADMIT Obstetrics & Gynecology; ATTEND Obstetrics & Gynecology
DX: O26.893 Other specified pregnancy related conditions, third trimester (principal); R11.0 Nausea; Z3A.38 38 weeks gestation of pregnancy; Z98.890 Other specified postprocedural states
CPT/HCPCS: 59025; 76819; 81002; 94760; 96372; A4649; G0378; J3105

== ENCOUNTER 2025-09-11 04:25 | Inpatient (IN) | payer MEDICAID ==
[2025-09-10 10:47] LABS: Hematocrit 40.0 % (36.0-46.0); Hemoglobin 13.7 g/dL (12.2-16.2); Mean Corpuscular Hemoglobin 32.2 pg (28.0-32.0); Mean Corpuscular Volume 94.4 fL (80.0-100.0); Nucleated Red Blood Cells % 0.2 %
[2025-09-10 10:48] LABS: Urine Protein, UAD Negative (Negative)
[2025-09-10 11:01] LABS: INR 0.95 (0.9-1.15); Partial Thromboplastin Time 27.3 SEC (24.5-34.5); Prothrombin Time 10.1 sec (9.3-11.8)
[2025-09-10 11:04] LABS: Alanine Aminotransferase 17 U/L (7-40); Albumin 3.5 g/dL (3.2-4.8); Anion Gap 12 (5-15); BUN/Creatinine Ratio 14.8 (10.0-20.0); Bilirubin, Total 0.4 mg/dL (0.2-1.0); Calcium 9.2 mg/dL (8.7-10.4); Carbon Dioxide 21 mmol/L (20-31); Chloride 106 mmol/L (98-107); Potassium 3.7 mmol/L (3.5-5.1); Sodium 139 mmol/L (136-145); Total Protein 6.0 g/dL (5.7-8.2)
[2025-09-10 11:06] LABS: Alkaline Phosphatase 151 U/L (46-116); Blood Urea Nitrogen 8 mg/dL (9-23); Glucose 130 mg/dL (74-106)
[2025-09-10 11:06] LABS: Amphetamine Screen, Urine Neg (NEGATIVE); Barbiturate Scree,Urine Neg (NEGATIVE); Benzodiazephine Screen, Urine Neg (NEGATIVE); Cannabinoid Screen, Urine Neg (NEGATIVE); Cocaine Screen, Urine Neg (NEGATIVE); Opiate Scree,Urine Neg (NEGATIVE); Phencyclidine Screen, Urine Neg (NEGATIVE)
[2025-09-11] VITALS (15 sets, daily range): BP systolic 99–130; BP diastolic 55–76; PULSE 72–98; RESP 15–18; TEMP 97.5–98.4; O2SAT 91–100
[~2025-09-11] VITALS: Ht 154.9 cm; Wt 110.7 kg
--- NOTE | 2025-09-11 03:13 | DVHHP ---
ADMIT DATE: 09/11/2025 CHIEF COMPLAINT: Labor, desires repeat section with bilateral tubal ligation. HISTORY OF PRESENT ILLNESS: The patient is a 29-year-old 2, para 2 with due date 09/20, estimated gestational age of 38+ weeks, admitted for early labor. The patient had previous section x1, wishes to have repeat section. The patient has been on Procardia for labor. She has antibody anti-c. She had previous section x1. She also wants to have tubal ligation. Risks, complications of tubal ligation, failure rate, use of Filshie clip discussed with the patient, options reviewed. All questions answered. The patient fully understands. She wishes to proceed with repeat section and bilateral tubal ligation. The patient also has a history of preeclampsia. PAST MEDICAL HISTORY: None. PAST SURGICAL HISTORY: . SOCIAL HISTORY: None. FAMILY HISTORY: None. OBSTETRIC AND GYNECOLOGIC HISTORY: One section. One vaginal delivery. REVIEW OF SYSTEMS: Consistent with HPI. PHYSICAL EXAMINATION: VITAL SIGNS: Stable, afebrile. HEENT: Within normal limits. CARDIOVASCULAR: Regular rate and rhythm. LUNGS: Clear to auscultation. BREASTS: Symmetrical. No masses. ABDOMEN: Gravid. Positive heart. PELVIC: 1 cm, 50%, -2. EXTREMITIES: No clubbing, cyanosis, or edema. IMPRESSION: ? Intrauterine at 38+ weeks in early labor. ? Previous section x1. Desires repeat section. ? Anti-c large antibody. The patient was under Dr. Fabian perinatology care. ? Desires tubal ligation. ? Morbid obesity. PLAN: Repeat section with bilateral tubal ligation. Informed consent was obtained. Risks and complications of surgery including infection, bleeding, hematoma formation, injury to bowel or bladder, surrounding organ, possibility of DVT, pulmonary embolism, and risk of anesthesia were discussed with the patient. Options reviewed. All questions were answered. The patient fully understands. She wishes to proceed with planned procedure. Failure rate with tubal sterilization, use of Filshie clip discussed with the patient. DO ДМИТРИЙ Williamson/JEFFERY TID: [id number] RECEIPT: [id number]
[~2025-09-11 04:25] MED LIST changes: +NIFE10CA52 PO
[2025-09-11] MEDS ORDERED: SODIUM CITR/CITRIC ACID ORAL SOLN 30 ML PO PRN (04:45)
[2025-09-11] MEDS ORDERED: METOCLOPRAMIDE HCL 5MG/ml INJ 2ml VIAL IV PRN (04:45)
[2025-09-11] MEDS: ceFAZolin 2 GM/D5W50ml 50 ML IV ONE (07:43)
[2025-09-11] MEDS: LACTATED RINGER'S 1,000 ML IV SCH (08:03)
[2025-09-11] MEDS: LACTATED RINGER'S 1,000 ML IV ONE (08:03)
[2025-09-11] MEDS ORDERED: BUPIVACAINE/DEXTROSE MPF 0.75% 2 ML AMP IT ONE (08:28)
[2025-09-11] MEDS ORDERED: MORPHINE SULF PF 5 MG/10 ML VIAL ONE (08:28)
[2025-09-11] MEDS ORDERED: ONDANSETRON HCL 4 MG/2 ML VIAL ONE (09:20)
[2025-09-11] MEDS: CARBOPROST TROMETHAMINE 250 MCG/1ML VIAL IM ONE (09:30)
[2025-09-11] MEDS ORDERED: NALOXONE HCL 0.4 MG/ML VIAL IV PRN (10:15)
[2025-09-11] MEDS ORDERED: ONDANSETRON HCL 4 MG/2 ML VIAL IV PRN (10:15)
[2025-09-11] MEDS ORDERED: ACETAMINOPHEN IV 1000 MG/100ML (10MG/ML) IV PRN ×2 (10:15→11:30)
[2025-09-11] MEDS: NALBUPHINE HCL 10 MG/1ml INJECTION SUBCUT ONE (10:15)
[2025-09-11] MEDS ORDERED: diphenhydrAMINE HCL 50 MG/1 ML VL IV PRN (10:15)
[2025-09-11] MEDS ORDERED: MEPERIDINE HCL (25 MG/ML) 1ML VIAL IV PRN (10:15)
[2025-09-11] MEDS ORDERED: HYDROmorphone HCL 2 MG/ML VL/or syr IV PRN ×2 (10:15)
[2025-09-11] MEDS ORDERED: KETOROLAC TROMETH 30 MG/ML 1ML VIAL IV PRN (10:15)
[2025-09-11] MEDS: ONDANSETRON HCL 4 MG/2 ML VIAL IV PRN (10:38)
[2025-09-11] MEDS: DIPHENOXYLATE W/ATROPINE 2.5 MG TAB PO ONE (10:40)
[2025-09-11] MEDS: DIPHENOXYLATE W/ATROPINE 2.5 MG TAB ONE (10:42)
[2025-09-11] MEDS: GUM (CHEWING) 1 GUM CHEW CHEW ONE (11:30)
[2025-09-11 12:12] LABS: Hematocrit 42.7 % (36.0-46.0); Hemoglobin 14.0 g/dL (12.2-16.2); Mean Corpuscular Hemoglobin 31.2 pg (28.0-32.0); Mean Corpuscular Volume 95.3 fL (80.0-100.0); Nucleated Red Blood Cells % 0.1 %
--- NOTE | 2025-09-11 12:25 | DVHOP2 ---
Operative Report DATE OF OPERATION: 09/11/25 PREOPERATIVE DIAGNOSES: 1. iup at 38+wks in labor, desires repeat section. 2. Desires bilateral tubal ligation,morbid obesity POSTOPERATIVE DIAGNOSES: same PROCEDURES: Repeat section with bilateral tubal ligation via Filschie Clips SURGEON: Mikaela Bazan D.O./ekaterina ANESTHESIOLOGIST: Dr. tobar TYPE OF ANESTHESIA : spinal ESTIMATED BLOOD LOSS: 800 mL CONSENT: The patient was informed of the risks and benefits of the procedure. These include but are not limited to , complications of anesthesia, postoperative infection, incomplete relief of symptoms, recurrence of symptoms, damage to blood vessels, nerves and tendons, deep venous thrombosis, pulmonary embolism and possible need for repeat surgery in the future. Surgery was opted. FINDINGS: Baby [m] with apgars [9] and [9]. Grossly normal appearing tubes and ovaries. some pelvic and tubal filmy adhesions noted consistent with previous PID. TISSUE TO PATHOLOGY: Placenta. PROCEDURE IN DETAIL: The patient was taken to the operating room where she was placed under spinal anesthesia. She was then prepped and draped in the usual sterile manner in supine position with a leftward tilt. A Pfannenstiel skin incision was then made 2 cm above the symphysis pubis. This incision was carried to the underlying layer of fascia. The fascia was nicked in the midline and the incision was extended laterally. The superior aspect of the fascial incision was grasped and elevated. Underlying rectus muscle was dissected off bluntly. The same procedure was done to the inferior aspect of the fascial incision. The rectus muscles were then in the midline. Peritoneum was identified and entered. Peritoneal incision was extended superiorly and inferiorly with good visualization of the bladder. Bladder blade was inserted. Vesicouterine peritoneum was identified and entered. Lower uterine segment was incised in a transverse fashion. The was delivered from vertex presentation. The infant was baby [m] with Apgars of [9] and [9]. Placenta was then removed manually. Uterus was exteriorized and cleared off all clots and debris. Uterine incision was repaired using 0 Vicryl in a double-layered fashion. No bleeding was noted. Bilateral tubal ligation was then performed using [place]. Placed in the ampullary region and identifying the fimbria distally. The isthmic portion of the right tube was clipped using Filschie Clip. The same procedure was done on the opposite side. No bleeding was noted. Peritoneum was closed using 0 Vicryl, fascia was closed using 0 Maxon, and skin was closed using charles. Estimated blood loss was noted to be 500 mL. The patient tolerated the procedure well. She was taken to the recovery room in stable condition. Visit Coding OBGYN Date of Service: Sep 11, 2025 Billing Provider: MIKAELA BAZAN DO CAREER PORTALS TEACHER Common Visit Codes: 38949-SPJOYRU OBS CARE (HIGH) CAREER PORTALS TEACHER Procedure Codes: 00821-QRCKG @ TIME OF , 14258-R-PTXVLTS DELIVERY ONLY MIKAELA BAZAN DO Sep 11, 2025 12:25
--- NOTE | 2025-09-11 12:28 | POSTOP ---
Post-Operative Note Post-Operative Note Preop Diagnosis iup at 38wks in labor ,desires rcs with btl morbid obesity Postop Diagnosis: same Operation performed rcs with btl filschie Specimen baby boy,apgars 9-9 Anesthesia: Regional Anesthesiologist: nuygen Blood Loss(fluid mgmt) 800ml Surgeon Mikaela Bazan Bale Piler ekaterina Implant filschie Complications & Mgmt none Date 09/11/25 Time 12:25 Visit Coding OBGYN Date of Service: Sep 11, 2025 Billing Provider: MIKAELA BAZAN DO MODERN AND CONTEMPORARY ART CURATOR Common Visit Codes: 41592-TYDKOWN OBS CARE (HIGH) MODERN AND CONTEMPORARY ART CURATOR Procedure Codes: 00989-IQUBS @ TIME OF , 82519-H-YGTLZZT DELIVERY ONLY MIKAELA BAZAN DO Sep 11, 2025 12:28
[2025-09-11] MEDS ORDERED: HYDR-4072 PO (12:30)
[2025-09-11] MEDS ORDERED: IBUP-1456 PO (12:30)
[2025-09-11] MEDS ORDERED: DOCU-94 PO (12:30)
[2025-09-11] MEDS: ACETAMINOPHEN IV 1000 MG/100ML (10MG/ML) IV PRN (14:47)
[2025-09-11] MEDS: ceFAZolin 1GM/50ML 50 ML IV SCH (17:01)
[2025-09-12] VITALS (12 sets, daily range): BP systolic 111–130; BP diastolic 67–85; PULSE 77–100; RESP 15–18; TEMP 98–98.6; O2SAT 93–97
[2025-09-12 06:36] LABS: Hematocrit 38.2 % (36.0-46.0); Hemoglobin 13.0 g/dL (12.2-16.2); Mean Corpuscular Hemoglobin 32.4 pg (28.0-32.0); Mean Corpuscular Volume 94.9 fL (80.0-100.0); Nucleated Red Blood Cells % 0.1 %
--- NOTE | 2025-09-12 06:39 | DVHPN2 ---
Progress Note Date Seen: Sep 12, 2025 Subjective Chikis is standing at the bedside with baby swaddled in bassinet. She is feeling a little more pain at the moment, but is excited to eat breakfast SUBJECTIVE: -Lochia minimal -Clear liquid diet well tolerated. -Ambulating and voiding well w/o feeling dizzy or lightheaded -Pain relieved with oral medication PRN -Passing flatus but no BM yet. -Bottlefeeding w/o problem vital signs Vital Sign Date Time Temp Pulse Resp B/P (MAP) Pulse Ox O2 Delivery O2 Flow Rate FiO2 09/12/25 05:41 78 16 95 09/12/25 03:00 98.0 130/73 (92) 98.0 09/11/25 19:00 Room Air 09/11/25 10:04 6.0 09/11/25 10:04 89 Total Intake and Output 09/11/25 09/11/25 09/12/25 15:00 23:00 07:00 Intake Total 50 ml Output Total 450 ml Balance 50 ml -450 ml medications Current Medications Medications Dose Ordered Sig/Rebecca Route Start Time Stop Time Status Last Admin Dose Admin Lactated Ringer's 1,000 ml @ 125 mls/hr Q8H IV 09/11/25 04:45 09/11/25 08:03 125 MLS/HR Citric Acid/ Sodium Citrate 30 ml ONCE PRN PO 09/11/25 04:45 Cancel Metoclopramide HCl 10 mg ONCE PRN IV 09/11/25 04:45 Cancel Diphenhydramine HCl 25 mg Q4HP PRN IV 09/11/25 10:15 Ondansetron HCl 4 mg Q4HP PRN IV 09/11/25 10:15 Ketorolac Tromethamine 30 mg Q6HP PRN IV 09/11/25 10:15 09/16/25 10:14 Ephedrine Sulfate 10 mg [id number] PRN IV 09/11/25 11:30 09/12/25 11:29 Acetaminophen 1,000 mg Q8H PRN IV 09/11/25 13:45 09/11/25 23:42 1,000 MG laboratory and microbiology Laboratory Tests 09/10/25 10:09 Test 09/10/25 10:09 Range/Units Serum Glucose 130 H 74-106 mg/dL Objective OBJECTIVE: -A&O x4. No apparent distress. Affect appropriate -Afebrile, VSS -Chest: heart and lung sounds normal. -Breasts: Nipples intact w/o cracks or soreness -Abdomen: normal BS, soft, non-tender, no rebound or guarding, fundus firm @ U- 1, -Lower abdominal incision site with dressing dry and intact. No edema, erythema or induration -Extremities: no edema or tenderness Problems(with codes): (1) Status post primary low transverse section (2) History of bilateral tubal ligation Assessment/Plan ASSESSMENT 29 yo now Post operative & ppd # 1 s/p repeat Section with BTL, doing well. Blood Type: O+ Bottle feeding Rubella Immune PLAN -Regular diet OK -Continue pain management with medications as previously ordered. Will transition to PO medications today. Patient aware of different pain management options. Answered all questions -Increase fluid intake and fiber in diet to promote regular bowel movements, Laxative PRN -Educated patient on self-care and encouraged patient to balance activity and rest today -Continue routine care Plan discussed with: Patient Visit Coding OBGYN Date of Service: Sep 12, 2025 Billing Provider: SALOMÓN MIKE CNM ASSOCIATE DIRECTOR OF SALES Common Visit Codes: [id number] INP/OBS CARE(MOD) SALOMÓN MIKE CNM Sep 12, 2025 06:39
[2025-09-12] MEDS: ceFAZolin 1GM/50ML 50 ML IV ONE (10:01)
[2025-09-12] MEDS ORDERED: HYDROcodone-ACET 5/325MG TAB PO PRN (10:30)
[2025-09-12] MEDS ORDERED: BISACODYL 10 MG RECT SUPP PR PRN (10:30)
[2025-09-12] MEDS: SIMETHICONE 80 MG CHEWABLE TABLET PO SCH (12:09)
[2025-09-12] MEDS: HYDROcodone-ACET 5/325MG TAB PO PRN (12:57)
[2025-09-12] MEDS: IBUPROFEN 800 MG TAB PO PRN (20:58)
[2025-09-12] MEDS: DOCUSATE SOD 100 MG CAP PO SCH (21:49)
[2025-09-13 02:58] VITALS: BP 119/66; PULSE 95; RESP 16; TEMP 97.9; O2SAT 98
[2025-09-13 07:30] VITALS: BP 118/72; PULSE 86; RESP 18; TEMP 97.5; O2SAT 96
--- NOTE | 2025-09-13 09:48 | DVHDS2 ---
Physician Discharge Progress N Final Diagnosis: Term , delivered s/p Repeat C/Section and BTL Anti C Antibody positive Operations or Procedures: Operations or Procedures Repeat low transv c/section and BTL Commentary: Commentary Normal course Condition on Discharge: Stable Disposition: Home Discharge Instructions: Diet: Regular Activity: Light activity Activity comment: Pelvic rest x 6 wk Follow Up/Referral: 1- [address] Bazan, call office for Appt Medications: see eRX Follow Up Care: Discharge Statement: "Patient was advised to return to the ER or call 911 if any headaches, dizziness, shortness of breath, chest pain, abdominal pain, bleeding, fevers, or worsening of medical condition. Patient was counseled about treatment plan, medications, possible side effects, patientverbalized understanding. All questions were answered to the best of my ability. This discharge took greater then 30 minutes in planning, reviewing docume ntation, counseling the patient, and discussing with other team members." Visit Coding OBGYN Date of Service: Sep 13, 2025 Billing Provider: MAYTE FARR DO [employer] RE[employer]TER Common Visit Codes: 86446-EUD/OBS DISCH DAY <30MIN MAYTE FARR DO Sep 13, 2025 09:48
[2025-09-13 11:25] VITALS: BP 117/60; PULSE 78; RESP 18; TEMP 98.3; O2SAT 96
== END 2025-09-13 13:45 | disposition home or self-care (01) | DRG 539 ==
LOC: LDRP 04:25
PROVIDERS: ADMIT Obstetrics & Gynecology; ATTEND Obstetrics & Gynecology
PROC: 10D00Z1 Extraction of Products of Conception, Low, Open Approach (ICD-10-PCS; 2025-09-11)
PROC: 0UL70CZ Occlusion of Bilateral Fallopian Tubes with Extraluminal Device, Open Approach (ICD-10-PCS; principal; 2025-09-11 08:03)
DX: O34.211 Maternal care for low transverse scar from previous cesarean delivery (principal); E66.01 Morbid (severe) obesity due to excess calories; Z37.0 Single live birth; O99.214 Obesity complicating childbirth; N73.6 Female pelvic peritoneal adhesions (postinfective); O99.892 Other specified diseases and conditions complicating childbirth; Z30.2 Encounter for sterilization; Z3A.38 38 weeks gestation of pregnancy
CPT/HCPCS: 36415; 80053; 80307; 81001; 85025; 85610; 85730; 86780; 86803; 86850; 86900; 86901; 94760; 94762; 96360; 96361; G0378; J0131; J2405; J2590